=== PATIENT | male | born 1970 ===

== ENCOUNTER 2022-01-26 14:42 | Emergency (ER) | payer OTHER ==
[~2022-01-26] VITALS: Ht 170.2 cm; Wt 68.2 kg
[~2022-01-26 14:42] MED LIST: ASPIRIN LOW DOS81 M2 PO; BACLOFEN10 MG OR; BENZTROPINE2 MG PO; BUSPAR5 MG OR; CIPROFLOXACN500 MG PO; DILAUDID2 MG PO; DIPHENHYDRAM25 MG PO; ENALAPRIL5 MG PO; HALDOL DECA100 MG/ML IM; HALDOL0.5 MG/TAB IM; LOPRESSOR50 M1 PO; LOVASTATIN10 M1 OR; QVAR80 MCG IN; RISPERDAL4 MG OR; TEGRETOL200 MG OR; TYLENOL325 M1 RE; VENTOLIN HF1 IN
[2022-01-26 15:21] VITALS: BP 108/73
[2022-01-26 15:30] VITALS: BP 101/71
[2022-01-26] MEDS ORDERED: AMOX/K CLAV875 M1 PO (15:44)
[2022-01-26 15:45] VITALS: BP 105/67
[2022-01-26 16:01] VITALS: BP 105/67
== END 2022-01-26 16:00 | disposition designated cancer center or children's hospital (05) | DRG 159 ==
LOC: ED 14:42
DX: K02.9 Dental caries, unspecified (principal); K00.4 Disturbances in tooth formation; F20.9 Schizophrenia, unspecified